=== PATIENT | male | born 1970 | race Caucasian/White ===

== ENCOUNTER 2017-09-15 22:19 | Emergency (ER) | payer OTHER ==
[2017-09-15] MEDS ORDERED: HYDROCODONE/APAP 7.5/325 MG TAB ONE (23:38)
[2017-09-15] MEDS ORDERED: KETOROLAC 30 MG/ML INJ ONE (23:39)
--- NOTE | 2017-09-15 23:42 | ER ---
Nurse's Notes [facility] Name: Ian Roldan Age: 47 yrs Sex: Male : 1970 Arrival Date: 09/15/2017 Time: 22:22 Bed 24 Private MD: Diagnosis: Cellulitis of other sites Presentation: 09/15 22:20 Presenting complaint: Patient states: that [place] felt fc something stab him on the left outer ankle. Puncture site noted. States that it is started to swelling and is stinging. Pt attempts to urinating on it and putting vinegar on it. Transition of care: patient was not received from another setting of care. Onset of symptoms was September 15, 2017 at 17:00. Risk Assessment: Do you want to hurt yourself or someone else? Patient reports no desire to harm self or others. Initial Sepsis Screen: Does the patient meet any 2 criteria? No. Patient's initial sepsis screen is negative. Does the patient have a suspected source of infection? No. Patient's initial sepsis screen is negative. Care prior to arrival: None. 22:20 Method Of Arrival: Ambulatory fc 22:20 Acuity: OSEAS 4 fc Triage Assessment: 22:41 General: Appears uncomfortable, well groomed, Behavior is calm, cooperative, fc appropriate for age. Pain: Complains of pain in left foot Pain currently is 8 out of 10 on a pain scale. Quality of pain is described as burning, aching, Pain began 5 hrs ago Is continuous, Aggravated by increased activity, repositioning, weight bearing. EENT: No deficits noted. Neuro: Level of Consciousness is awake, alert, obeys commands, Oriented to person, place, time, situation. Cardiovascular: No deficits noted. Respiratory: No deficits noted. GI: No deficits noted. : No deficits noted. Derm: Skin is pink, warm \T\ dry. Wound noted left lateral malleolus Wound is puncture. Musculoskeletal: Circulation, motion, and sensation intact. Capillary refill < 3 seconds, Range of motion: intact in all extremities, Swelling present in left foot. Historical: - Allergies: 22:40 No Known Allergies; fc - Home Meds: 22:40 None [Active]; fc - PMHx: 22:40 None; fc - PSHx: 22:40 Tonsillectomy; fc - Immunization history:: Last tetanus immunization: unknown. - Social history:: Smoking status: Patient/guardian denies using tobacco. - Ebola Screening: : Patient negative for fever greater than or equal to 101.5 degrees Fahrenheit, and additional compatible Ebola Virus Disease symptoms Patient denies exposure to infectious person Patient denies travel to an Ebola-affected area in the 21 days before illness onset. Screenin:41 Abuse screen: Denies threats or abuse. Nutritional screening: No deficits noted. Tuberculosis screening: No symptoms or risk factors identified. Fall Risk None identified. Assessment: 22:56 General: Appears in no apparent distress. comfortable, Behavior is calm, cooperative, ao appropriate for age. Pain: Complains of pain in left lateral malleolus and left foot Pain does not radiate. Pain currently is 8 out of 10 on a pain scale. Quality of pain is described as burning. Neuro: Level of Consciousness is awake, alert, obeys commands, Oriented to person, place, time, situation, Appropriate for age Moves all extremities. Speech is normal, Facial symmetry appears normal. Cardiovascular: Capillary refill < 3 seconds Patient's skin is warm and dry. Respiratory: Airway is patent Respiratory effort is even, unlabored, Respiratory pattern is regular, symmetrical. GI: Abdomen is non-distended. : No signs and/or symptoms were reported regarding the genitourinary system. EENT: No signs and/or symptoms were reported regarding the EENT system. Derm: Skin Edema noted in the left ankle Skin is dry, Skin is pink, warm \T\ dry. normal, Skin temperature is warm Reports Getting bitten by unknown ocean animal. Musculoskeletal: No signs and/or symptoms reported regarding the musculoskeletal system. Vital Signs: 22:20 BP 134 / 85; Pulse 71; Resp 18; Temp 99.2(O); Pulse Ox 96% on R/A; Weight 102.06 kg fc (R); Height 6 ft. 1 in. (185.42 cm) (R); Pain 8/10; 22:20 Body Mass Index 29.68 (102.06 kg, 185.42 cm) ED Course: 22:20 Arm band placed on Patient placed in an exam room, on a stretcher. 22:22 Patient arrived in ED. ds1 22:39 Triage completed. 22:41 Patient has correct armband on for positive identification. Bed in low position. Call light in reach. 22:44 Chente Gibbs MD is Attending Physician. tw4 22:56 Herberth Ellis, RN is Primary Nurse. ao 22:56 X-ray completed. Portable x-ray completed in exam room. Patient tolerated procedure mh1 well. 22:56 Foot Left 3 View In Process Unspecified. EDMS 23:56 No provider procedures requiring assistance completed. Patient did not have IV access ao during this emergency room visit. Administered Medications: 23:45 Not Given (Patient Refused): Prescott (7.5 mg-325 mg) 1 tabs PO once ao 23:45 Not Given (Patient Refused): TORadol 60 mg IM once ao 23:50 Drug: Cleocin 300 mg Route: PO; ao 23:50 Follow up: Response: Medication administered at discharge. ao Outcome: 23:41 Discharge ordered by . tw4 23:56 Discharged to home ambulatory. ao 23:56 Condition: stable 23:56 Discharge instructions given to patient, Instructed on discharge instructions, follow up and referral plans. Demonstrated understanding of instructions, follow-up care, medications, Prescriptions given X 3. 23:57 Patient left the ED. ao Signatures: Dispatcher [employer] EDMS Sandra Moran 1 Ida Morales RN RN Nini Adams 1 Herberth Ellis RN RN Chente Nagy MD MD tw4
--- NOTE | 2017-09-15 23:42 | EDPHYS ---
Physician Documentation [facility] Name: Ian Roldan Age: 47 yrs Sex: Male : 1970 Arrival Date: 09/15/2017 Time: 22:22 Bed 24 Private MD: ED Physician Chente Gibbs HPI: 09/15 23:38 This 47 yrs old Male presents to ER via Ambulatory with complaints of Sting. tw4 23:38 The patient was bitten on the left lateral ankle, by an unknown animal. Onset: The tw4 symptoms/episode began/occurred today. Animal information: Patient/Caregiver unable to provide information related to the animal. Secondary to the bite the patient reports a puncture wound, that is superficial. Associated signs and symptoms: The patient has no apparent associated signs or symptoms. The patient has not experienced similar symptoms in the past. Historical: - Allergies: 22:40 No Known Allergies; fc - Home Meds: 22:40 None [Active]; fc - PMHx: 22:40 None; fc - PSHx: 22:40 Tonsillectomy; fc - Immunization history:: Last tetanus immunization: unknown. - Social history:: Smoking status: Patient/guardian denies using tobacco. - Ebola Screening: : Patient negative for fever greater than or equal to 101.5 degrees Fahrenheit, and additional compatible Ebola Virus Disease symptoms Patient denies exposure to infectious person Patient denies travel to an Ebola-affected area in the 21 days before illness onset. ROS: 23:38 Constitutional: Negative for fever, chills, and weight loss, Cardiovascular: Negative tw4 for chest pain, palpitations, and edema, Respiratory: Negative for shortness of breath, cough, wheezing, and pleuritic chest pain, Abdomen/GI: Negative for abdominal pain, nausea, vomiting, diarrhea, and constipation. 23:38 Neuro: Negative for headache, weakness, numbness, tingling, and seizure, Psych: Negative for depression, anxiety, suicide ideation, homicidal ideation, and hallucinations. 23:38 MS/extremity: Positive for puncture, swelling, tenderness. Exam: 23:38 Constitutional: This is a well developed, well nourished patient who is awake, alert, tw4 and in no acute distress. Chest/axilla: Normal chest wall appearance and motion. Nontender with no deformity. No lesions are appreciated. Cardiovascular: Regular rate and rhythm with a normal S1 and S2. No gallops, murmurs, or rubs. Normal PMI, no JVD. No pulse deficits. Respiratory: Lungs have equal breath sounds bilaterally, clear to auscultation and percussion. No rales, rhonchi or wheezes noted. No increased work of breathing, no retractions or nasal flaring. Abdomen/GI: Soft, non-tender, with normal bowel sounds. No distension or tympany. No guarding or rebound. No evidence of tenderness throughout. 23:38 Musculoskeletal/extremity: Extremities: noted in the left lateral ankle: pain, puncture, swelling, tenderness. Vital Signs: 22:20 BP 134 / 85; Pulse 71; Resp 18; Temp 99.2(O); Pulse Ox 96% on R/A; Weight 102.06 kg fc (R); Height 6 ft. 1 in. (185.42 cm) (R); Pain 8/10; 22:20 Body Mass Index 29.68 (102.06 kg, 185.42 cm) MDM: 22:44 Patient medically screened. tw4 23:40 Differential diagnosis: superficial laceration, cellulitis. Data reviewed: vital signs, tw4 nurses notes. Test interpretation: by ED physician or midlevel provider: not applicable. Test interpretation: by ED physician or midlevel provider: plain radiologic studies. Counseling: I had a detailed discussion with the patient and/or guardian regarding: the historical points, exam findings, and any diagnostic results supporting the discharge/admit diagnosis, radiology results. Special discussion: I discussed with the patient/guardian in detail that at this point there is no indication for admission to the hospital. It is understood, however, that if the symptoms persist or worsen the patient needs to return immediately for re-evaluation. I have asked the patient/guardian to return tomorrow morning for re-evaluation of the patient's condition. 09/15 22:55 Order name: Foot Left 3 View EDMS Administered Medications: 23:45 Not Given (Patient Refused): Pegram (7.5 mg-325 mg) 1 tabs PO once ao 23:45 Not Given (Patient Refused): TORadol 60 mg IM once ao 23:50 Drug: Cleocin 300 mg Route: PO; ao 23:50 Follow up: Response: Medication administered at discharge. ao Disposition: 09/15/17 23:41 Discharged to Home. Impression: Cellulitis of other sites. - Condition is Stable. - Discharge Instructions: Cellulitis. - Prescriptions for Cleocin 300 mg Oral Capsule - take 1 capsule by ORAL route every 6 hours for 10 days; 40 capsule. Ibuprofen 800 mg Oral Tablet - take 1 tablet by ORAL route every 8 hours As needed take with food; 30 tablet. Tylenol- Codeine #3 300-30 mg Oral Tablet - take 2 tablet by ORAL route every 6 hours As needed; 30 tablet. - Medication Reconciliation Form, Thank You Letter, Antibiotic Education, Prescription Opioid Use form. - Follow up: Private Physician; When: As needed; Reason: Recheck today's complaints, Re-evaluation by your physician. - Problem is new. - Symptoms have improved. Signatures: Dispatcher [employer] EDPA Ida Morales, RN RN Herberth Ellis RN RN ao Wadley, Terrence, MD MD tw4 Corrections: (The following items were deleted from the chart) 22:55 22:43 Ankle Left 3 View+RAD.[email or web address].[email or web address] ordered. [facility] 23:57 23:41 09/15/2017 23:41 Discharged to Home. Impression: Cellulitis of other sites. ao Condition is Stable. Forms are Medication Reconciliation Form, Thank You Letter, Antibiotic Education, Prescription Opioid Use. Follow up: Private Physician; When: As needed; Reason: Recheck today's complaints, Re-evaluation by your physician. Problem is new. Symptoms have improved. tw4
[2017-09-15] MEDS ORDERED: CLINDAMYCIN HCL 150 MG CAP ONE (23:50)
--- NOTE | 2017-09-16 07:21 | RAD REPORT ---
EXAM DESCRIPTION: RAD - Foot Left 3 View - 09/15/2017 10:58 pm CLINICAL HISTORY: Foot pain, puncture wound, possible retained sting ray kasandra COMPARISON: None. FINDINGS: No fracture, dislocation or periosteal reaction. No acute or destructive bony process. Site of possible soft tissue puncture was not noted. No retained foreign body identifiable. No air or other significant soft tissue finding. IMPRESSION: Negative left foot examination.
== END 2017-09-15 23:57 | disposition home or self-care (01) ==
LOC: ER 22:19
DX: L03.818 Cellulitis of other sites (principal)
CPT/HCPCS: 99283